=== PATIENT | female | born 1930 | race Caucasian/White ===

== ENCOUNTER 2018-01-27 20:08 | Inpatient (IN) ==
[2018-01-27] MEDS ORDERED: Naloxone 0.4 MG/ML INJ IVP PRN (22:40)
--- NOTE | 2018-01-27 23:41 | Internal Med History&Physical ---
Date of Encounter: 01/28/18 Time of Encounter: 23:35 Internal Medicine - H&P: HPI Chief complaint: Decreased responsiveness Admitted From: Emergency Dept Plans for Post Hospital Care: Transfer [facility] History of present illness: Ms. Hua is a 87 year old female with history of severe dementia, polycythemia vera was sent to the emergency department from the correction due to abnormal labs and decreased responsiveness. Patient is altered at this time and history is obtained from the niece, Faviola, at bedside who is also the healthcare power of insurance attorney. Niece states that the patient seems less responsive and active than normal. Niece states that her mental status normally waxes and wanes and at times she will be somewhat interactive but is normally always confused. She reports her right eyelid and face has mild drooping at all times. The only new changes that that the niece notes is decreased responsiveness. Past Med Surg Social Fam HX - Past Medical History Medical history: arthritis, cancer, dementia, glaucoma Additional medical history: breast CA (R mastectomy) Psychiatric history: anxiety, depression - Past Surgical History Surgical History: no surgical history Additional surgical history: Unknown - Social History Smoking Status: Former smoker Smokeless Tobacco Status: No Alcohol use: none Drug use: none Internal Medicine - H&P: Meds Acidophilus 175 mg Capsule 1 cap PO BID 01/10/15 [History] Ambien 1 tab PO DAILY PRN 01/10/15 [History] Aricept 1 tab PO DAILY 01/10/15 [History] Baclofen 1 tab PO BID PRN 01/10/15 [History] Hydroxyurea [Hydrea] 1 cap PO DAILY #30 capsule 01/10/15 [Rx] Loratadine 1 tab PO DAILY 01/10/15 [History] Multivitamin 1 tab PO DAILY 01/10/15 [History] Zoloft 1 tab PO DAILY 01/10/15 [History] Acetaminophen [Tylenol] 1,000 mg PO Q8HR PRN 04/07/15 [History] Ascorbic Acid [Vitamin C] 500 mg PO DAILY 04/07/15 [History] Baclofen [Lioresal Intrathecal] 2,000 mcg TP BID 04/07/15 [History] Dorzolamide/Timolol [Cosopt] 1 drop LEFT EYE BID 04/07/15 [History] Pilocarpine 2% OPTH [Isopto Carpine] 2 drop LEFT EYE HS 04/07/15 [History] Travoprost [Travatan Z] 5 ml OP HS 04/07/15 [History] Vitamin B Complex/Folic Acid [Super B Maxi Complex Caplet] 0.4 mg PO QAM [History] Aspirin [Adult Low Dose Aspirin EC] 162 mg PO DAILY 365 Days tablet. [Rx] Hydroxyurea [Hydrea] 500 mg PO DAILY #30 capsule 07/16/16 [Rx] 3 Allergy/AdvReac Type Severity Reaction Status Date / Time No Known Allergies Allergy Verified 01/10/15 14:32 ROS unobtainable: due to mental status All Systems PM: A 10-system review of systems was performed and is negative for pertinent findings except as documented above in the HPI. - Constitutional Vitals: Temp Pulse Resp BP Pulse Ox 98.5 F 82 19 134/82 96 01/27/18 22:25 01/27/18 22:25 01/27/18 22:25 01/27/18 22:25 01/27/18 22:25 General appearance: Present: A&O X 0, no acute distress. Absent: answers questions appropriately Exam: . - Eye Eye exam: Present: PERRL (pupils reactive but sluggish). Absent: periorbital swelling Additional comments: Right ptosis - ENT ENT exam: Present: mucous membranes dry, normal oropharynx - Neck Neck exam general surgery: Present: full ROM. Absent: tenderness - Respiratory Respiratory exam: Present: CTAB. Absent: rales, rhonchi, wheezes - Cardiovascular Cardiovascular exam: Present: RRR. Absent: gallop, rubs, systolic murmur - GI/Abdominal GI/Abdominal exam: Present: diminished bowel sounds, soft. Absent: distended, tenderness - Extremities Exam Extremities exam: Present: warm. Absent: pedal edema, tenderness - Neurological Exam Neurological exam: Present: alert, altered, no focal deficits, facial droop ( mild right sided, chronic per niece). Absent: oriented X3 Additional comments: Patient has severe underlying dementia, will make verbal noises but does not answer questions appropriately. He states that the patient seems somewhat more lethargic but otherwise is at baseline mental status with no new neurologic findings. - Skin Skin exam: Present: dry, intact, warm Internal Med - H&P Results - Labs CBC & Chem 7: 01/27/18 23:05 01/27/18 23:05 - Assessment and plan (1) Hypernatremia Current Visit: Yes Status: Acute Assessment and plan: Sodium 168 on presentation, corrected for glucose is 179. Appears to be chronic (>48h) as patient had an elevated sodium of 157 (161 corrected) on January 23. Patient had a normal sodium of 143 (with normal glucose) on January 09. Likely due to decreased oral intake and lack of free water intake, likely impaired thirst reflex in the setting of severe dementia. Patient appears dehydrated on exam. Urine osmolality is 783 and urine sodium was 24.5. Patient received 1 L of fluids in the emergency department, free water deficit calculated to be 5.2L. patient is acutely hypovolemic so we will replenish with 2 L normal saline then likely correct with half-normal saline. Goal correction is 10 mEq every 24 hours. Monitor glucose and sodium every 2 hours. Given patient's altered mental status and high concern for aspiration we will keep patient nothing by mouth at this time. Of note discussed with the niece Micki who is the healthcare power of insurance attorney regarding CODE STATUS. She feels like DNR CCA would likely be appropriate but she would like to discuss with her siblings before making this official. Patient will remain full code at this time (2) Hyperglycemia Current Visit: No Status: Inactive Assessment and plan: Possibly due to severe dehydration as discussed above as well as stress response in the setting of dehydration. No history of diabetes. We will check hemoglobin A1c in the morning. We will aggressively fluid hydrate as discussed above and hold off on any insulin at this time as it is likely that correcting the patient's dehydration we will correct her sugars. (3) Acute kidney injury Current Visit: Yes Status: Acute Assessment and plan: Likely due to prerenal azotemia in the setting of severe dehydration. Will fluid hydrate as discussed above, continue monitor renal function. Patient has good urine output. (4) Dementia Current Visit: No Status: Chronic Assessment and plan: History of. Patient appears less alert but otherwise is at her baseline per her niece Qualifiers: Dementia type: unspecified type Dementia behavioral disturbance: without behavioral disturbance Qualified Code(s): F03.90 - Unspecified dementia without behavioral disturbance (5) Polycythemia Current Visit: No Status: Acute Assessment and plan: History of polycythemia vera. He will been stable this time. We will trend. Nothing by mouth at this time, once patient is able to take by mouth meds will restart hydroxyurea. (6) DVT prophylaxis Current Visit: Yes Status: Acute Assessment and plan: Heparin 5000 units subcutaneous twice a day - Time Spent With Patient Total time spent is greater than 50% in coordination of care (as documented) at patient's floor/unit and/or counseling patient:
[2018-01-28 00:06] LABS: Calcium 8.8 mg/dL (8.6-10.3); Potassium 3.9 mEq/L (3.5-5.1)
[2018-01-28 00:09] LABS: Basophils % 0.2 %; Eosinophils % 0.2 %; Hematocrit 42.6 % (35.3-44.9); Immature Granulocytes % 0.5 % (0-4); Lymphocytes % 8.9 %; Mean Corpuscular HGB Conc 30.5 g/dL (31.6-35.5); Mean Corpuscular Hemoglobin 34.7 pg (28.0-33.3); Mean Corpuscular Volume 113.6 fL (83.0-100.0); Mean Platelet Volume 11.9 fL (9.4-12.4); Monocytes # 0.5 K/mcL (0.0-1.3); Monocytes % 4.7 %; Neutrophils # 9.2 K/mcL (1.6-8.9); Platelet Count 257 K/mcL (140-400); Red Blood Count 3.75 M/mcL (3.82-4.97); Red Cell Distribution Width 14.8 % (11.5-14.5); Segmented Neutrophils % 85.5 %
[2018-01-28] MEDS: 0.9 % Sodium Chloride 1,000 ML IVC SCH ×2 (00:34→01:39)
[2018-01-28 00:35] LABS: Macrocytosis Present (Not Present); Platelet Estimate Normal (Normal)
[2018-01-28 03:41] LABS: Basophils % 0.2 %; Eosinophils % 0.1 %; Hematocrit 39.5 % (35.3-44.9); Immature Granulocytes % 0.6 % (0-4); Lymphocytes # 1.1 K/mcL (0.6-4.6); Lymphocytes % 10.8 %; Mean Corpuscular HGB Conc 30.4 g/dL (31.6-35.5); Mean Corpuscular Hemoglobin 35.1 pg (28.0-33.3); Mean Corpuscular Volume 115.5 fL (83.0-100.0); Mean Platelet Volume 11.7 fL (9.4-12.4); Monocytes # 0.4 K/mcL (0.0-1.3); Monocytes % 4.4 %; Neutrophils # 8.4 K/mcL (1.6-8.9); Platelet Count 228 K/mcL (140-400); Red Blood Count 3.42 M/mcL (3.82-4.97); Red Cell Distribution Width 14.8 % (11.5-14.5); Segmented Neutrophils % 83.9 %
[2018-01-28 04:06] LABS: Macrocytosis Present (Not Present); Platelet Estimate Normal (Normal)
[2018-01-28] MEDS: *HR* Heparin 5,000 UNIT/ML VIAL SQ SCH ×2 (05:41→18:06)
[2018-01-28 06:27] LABS: Calcium 8.2 mg/dL (8.6-10.3); Magnesium 2.5 mg/dL (1.6-2.6); Potassium 3.9 mEq/L (3.5-5.1)
[2018-01-28 08:15] LABS: Glucose 490 mg/dL (70-105); Sodium 173 mEq/L (136-145)
[2018-01-28] MEDS ORDERED: Dextrose Gel 15 GM/37.5 ML TUBE PO PRN ×2 (08:39)
[2018-01-28] MEDS ORDERED: *HR* Dextrose 50 % in Water (Syg) 50 ML SYRINGE IVP PRN (08:39)
[2018-01-28] MEDS ORDERED: D5% in Water 1,000 ML IVC PRN (08:39)
[2018-01-28] MEDS ORDERED: Insulin LISPRO 300 UNITS/3 ML VIAL SQ SCH (08:40)
[2018-01-28] MEDS ORDERED: D5% in 0.9% NACL 1,000 ML IVC SCH (08:45)
[2018-01-28 08:54] LABS: Estimated Average Glucose 223 mg/dl; Hemoglobin A1C 9.4 %
[2018-01-28] MEDS ORDERED: Insulin Human Regular 100 UNIT in 0.9 % Sodium Chloride 100 ML IVC SCH (09:00)
--- NOTE | 2018-01-28 09:09 | Internal Med Progress Note ---
Hospitalist Progress Note - Encounter Date of Encounter: 01/28/18 Time of Encounter: 09:01 - Subjective Interval History: Ms. Hua is a 87 year old female with history of severe dementia, polycythemia vera and dementia who is chronic long-term resident at a [facility] was brought into the ER complaining patient has been having decreased responsiveness , lethargic and abnormal labs with severely elevated sodium. Patient had her sodium checked on came back 158 and y/d it was 168. Pt was admitted into the step down unit and started her on aggressive IV hydration with 1/2NS. Her Na still trending high at 173 this morning. Pt is little more alert, awake and responding to verbal stimuli. She also happened to have severe hyperglycemia. - Exam Vitals: Temp Pulse Resp BP Pulse Ox 99.4 F 86 16 159/82 93 01/28/18 07:59 01/28/18 07:59 01/28/18 07:59 01/28/18 07:59 01/28/18 07:59 Exam: Gen: sleepy, sedative, confused Chest: Diminished breath sounds B/L, No wheezing, No crackles, No rales Heart: S1S2+ RRR No murmurs Abd: Soft, NT, BS +, No organomegaly Ext: No edema, pulses are palpable, No calf tenderness Neuro : confused Skin: No rash. - Assessment and Plan (1) Hypernatremia Current Visit: Yes Status: Acute Assessment and Plan: Severe hypernatremia due to dehydration / hypovolemic changed IVF to D5 Water @ 150 cc/hr Morrison +, Strict I & O Q4hr Na Q8hr K+ and Mg cont close monitoring Talked to pt's niece at bed side who is POA for the pt.. Explained to her about current care. She would like to continue current care for next 1-2 days, if no improvement she would consider complete hospice care. Mean while changed code status to DNR/ Comfort care. She does not want to proceed with any other aggressive measures Palliative care consulted Spent 45 minutes on this pt's critical care time. (2) Acute kidney injury Current Visit: Yes Status: Acute Assessment and Plan: Due to dehydration Non oliguric improving slowly (3) Hyperglycemia Current Visit: No Status: Acute Assessment and Plan: Severe hyperglycemia will f/u on HbA1C started her in Insulin gtt, since pt was placed on D5 Water too (4) Dementia Current Visit: No Status: Chronic Assessment and Plan: worsening dementia poor PO intake at ECF Family would like to consider comfort care Palliative care consulted (5) Polycythemia Current Visit: No Status: Acute Assessment and Plan: stable once patient is able to take by mouth meds will restart hydroxyurea. (6) DVT prophylaxis Current Visit: Yes Status: Acute Assessment and Plan: Heparin 5000 units subcutaneous twice a day - Time Spent with Patient Total time spent is greater than 50% in coordination of care (as documented) at patient's floor/unit and/or counseling patient: Internal Medicine: Result - Labs CBC & Chem 7: 01/28/18 02:58 01/28/18 07:14 Labs: Short CBC 01/27/18 01/28/18 Range/Units 23:05 02:58 WBC 10.7 10.0 (4.3-11.1) K/mcL Hgb 13.0 12.0 (11.5-15.4) g/dL Hct 42.6 39.5 (35.3-44.9) % Plt Count 257 228 (140-400) K/mcL Neutrophils # 9.2 H 8.4 (1.6-8.9) K/mcL BMP 01/27/18 01/28/18 01/28/18 23:05 02:58 02:58 Sodium 172 H* 172 H* Potassium 3.9 Chloride 129 H Carbon Dioxide 33 H BUN 61 H Creatinine 1.44 H Glucose 597 H* 493 H Calcium 8.8 01/28/18 01/28/18 05:07 07:14 Sodium 170 H* 173 H* Potassium 3.9 Chloride 137 H Carbon Dioxide 30 H BUN 54 H Creatinine 1.22 H Glucose 495 H 490 H Calcium 8.2 L Consult Discharge Plan - Plan Referrals: Burt Bolanos MD [Primary Care Provider] - (4) Dementia Qualifiers: Dementia type: unspecified type Dementia behavioral disturbance: without behavioral disturbance Qualified Code(s): F03.90 - Unspecified dementia without behavioral disturbance
[2018-01-28] MEDS ORDERED: D5% in Water 1,000 ML IVC SCH ×3 (09:15→20:31)
--- NOTE | 2018-01-28 10:30 | Palliative - Consult Note ---
Date of Encounter: 01/28/18 Time of Encounter: 10:25 - Assessment and Plan (1) Goals of care, counseling/discussion Current Visit: Yes Status: Acute Assessment and plan: Met with Pt's nieces Maria Fernanda Salmeron at the bedside. Patient never had children, but she has 5 nieces. Maria Fernanda and Faviola are both POA, and will provide documentation. Discussed pt's current medical condition, trajectory of illness, treatment options and prognosis. Faviola and Maria Fernanda have a good understanding of hospice care as their mother recently on hospice. As per the nieces, patient up to a week ago was walking and eating well. The current condition is an acute change from her baseline, and they would like to attempt to find and treat the acute causes. Patient to be re-evaluated once her electrolytes are stable. Discussed code status, the nieces would like patient to be DNRCCA and DNI, but they would like to discuss with their siblings before final documentation is drafted. At this point GOC are for acute treatment, with the hope for pt to return to her previous baseline. Further evaluation as clinically warranted. Palliative care will follow. (2) Hyperglycemia Current Visit: No Status: Acute Assessment and plan: Patient has no history of DM as per family, pt was recently given a course of steroids for a R knee infusion. Agree with insulin drip, given pt on D5W close monitoring. (3) Metabolic encephalopathy Current Visit: Yes Status: Acute Assessment and plan: Patient on admission had a severely elevated Na and Cl, as well as severe hyperglycemia Recommend UA to r/o UTI as a contributing factor continue hydration ad electrolytes repletion Agree with insulin drip (4) Dementia Current Visit: No Status: Chronic Assessment and plan: Patient at her baseline is ambulatory, limited speech, good PO intake. FAST score 6E. Continue Donepezil Qualifiers: Dementia type: Alzheimer's disease Alzheimer's disease onset: unspecified onset Dementia behavioral disturbance: without behavioral disturbance Qualified Code(s): G30.9 - Alzheimer's disease, unspecified; F02.80 - Dementia in other diseases classified elsewhere without behavioral disturbance (5) Hypernatremia Current Visit: Yes Status: Acute Assessment and plan: Labs show hypernatremia and hyperchloremia, and GINO with BUN/Cr > 20, compatible with dehydration Patient on IV hydration with D5 water 150cc/hr monitoring Na and K. If no improvement may consider enteral hydration with NGT (6) Acute kidney injury Current Visit: Yes Status: Acute Assessment and plan: Prerenal, likely due to dehydration management per primary team Palliative-CN HPI - Data of Consult Consult date: 01/28/18 Requesting Physician: Christian Gutierrez MD Primary Care Provider: Burt Bolanos MD - Consult Narrative Palliative Care/Comfort Measures: Palliative care Reason for consult: Hospice evaluation History of present illness: Ms. Hua is a 87 year old female with history of severe dementia, polycythemia vera who is chronic long-term resident at a local [facility] was brought into the ER complaining patient has been having decreased responsiveness, lethargic and abnormal labs with severely elevated sodium and glucose. As per patient's nieces Maria Fernanda and Faviola present at the bedside, patient at her baseline is alert, she walks and participates in [facility] activities, she speaks few words. She had an acute decline last Friday due to respiratory virus as per [facility] staff, and has been worsening since then. At the time of exam, patient is alert, non verbal, not following commands. In no acute distress, does not seem in pain or discomfort. CC: Christian Gutierrez MD - Time Spent with Patient Time: Total time spent is greater than 50% face to face with patient and family, in coordination of care (as documented) at patient's floor/unit and/or counseling patient: Greater than 70 minutes Past Med Surg Social Fam HX - Past Medical History Medical history: arthritis, cancer, dementia, glaucoma Additional medical history: breast CA (R mastectomy) Psychiatric history: anxiety, depression - Past Surgical History Surgical History: no surgical history Additional surgical history: Unknown - Social History Smoking Status: Former smoker Smokeless Tobacco Status: No Alcohol use: none Drug use: none Medications and Allergies ALPRAZolam [Xanax 0.5 MG Tablet] 0.5 mg PO BID 01/28/18 [History] Aspirin [Lo-Dose Aspirin EC] 81 mg PO DAILY 01/28/18 [History] Azithromycin [Azithromycin 6-Tab Pack] 250 mg PO PER PKG DI 01/28/18 [History] Cyanocobalamin (Vitamin B-12) [Vitamin B-12] 1,000 mcg PO DAILY 01/28/18 [ History] Donepezil HCl [Aricept] 10 mg PO HS 01/28/18 [History] Dorzolamide/Timolol/Pf [Timolol 0.5%-Dorzolamide 2%] 10 ml LEFT EYE TID [History] GuaiFENesin Liq [Robitussin Liq] 200 mg PO Q4H PRN 01/28/18 [History] Guaifenesin [Mucinex] 600 mg PO Q12H 01/28/18 [History] Hydroxyurea [Hydrea] 500 mg PO DAILY 01/28/18 [History] Ibuprofen [Ibu] 600 mg PO Q6H PRN 01/28/18 [History] Lactobacillus Acidophilus [Acidophilus] 1 tab PO BID 01/28/18 [History] Loperamide HCl [Imodium A-D] 2 mg PO Q4H PRN 01/28/18 [History] Loratadine [Allergy Relief] 10 mg PO DAILY 01/28/18 [History] Mag Hydrox/Aluminum Hyd/Simeth [Cvs Antacid Plus Anti-Gas Liq] 15 ml PO Q6H PRN 01/28/18 [History] Ondansetron HCl [Zofran] 4 mg PO Q6H PRN 01/28/18 [History] Pilocarpine HCl [Salagen] 5 mg PO BID 01/28/18 [History] Sertraline [Zoloft] 50 mg PO DAILY 01/28/18 [History] Travoprost [Travatan Z] 1 drop LEFT EYE 1700 01/28/18 [History] 3 Allergy/AdvReac Type Severity Reaction Status Date / Time No Known Allergies Allergy Verified 01/10/15 14:32 ROS unobtainable: due to mental status Palliative Care-Exam - Constitutional Vitals: Temp Pulse Resp BP Pulse Ox 99.4 F 82 16 159/82 93 01/28/18 07:59 01/28/18 09:10 01/28/18 07:59 01/28/18 07:59 01/28/18 07:59 General appearance: Present: no acute distress - Head Head Exam: Present: atraumatic - Eye Eye exam: Present: normal appearance - Expanded ENT Exam Mouth Exam: Present: dry mucosa - Neck Neck exam: Present: full ROM - Respiratory Respiratory exam: Present: CTAB. Absent: rales, rhonchi, wheezes - Cardiovascular Cardiovascular exam: Present: RRR - GI/Abdominal Exam GI/Abdominal exam: Present: normal bowel sounds, soft. Absent: tenderness - Extremities Exam Extremities exam: Present: full ROM. Absent: pedal edema, tenderness - Neurological Exam Neurological exam: Present: alert, altered Additional comments: non verbal, no focal deficits - Skin Skin exam: Present: dry Internal Medicine - CN: Reslt - Labs CBC & Chem 7: 01/28/18 02:58 01/28/18 07:14 Labs: Short CBC 01/27/18 01/28/18 Range/Units 23:05 02:58 WBC 10.7 10.0 (4.3-11.1) K/mcL Hgb 13.0 12.0 (11.5-15.4) g/dL Hct 42.6 39.5 (35.3-44.9) % Plt Count 257 228 (140-400) K/mcL Neutrophils # 9.2 H 8.4 (1.6-8.9) K/mcL BMP 01/27/18 01/28/18 01/28/18 23:05 02:58 02:58 Sodium 172 H* 172 H* Potassium 3.9 Chloride 129 H Carbon Dioxide 33 H BUN 61 H Creatinine 1.44 H Glucose 597 H* 493 H Calcium 8.8 01/28/18 01/28/18 05:07 07:14 Sodium 170 H* 173 H* Potassium 3.9 Chloride 137 H Carbon Dioxide 30 H BUN 54 H Creatinine 1.22 H Glucose 495 H 490 H Calcium 8.2 L Consult Discharge Plan - Plan Referrals: Burt Bolanos MD [Primary Care Provider] - Palliative Quality Palliative Quality: Screen for Code Status: Yes, Screen for Goals of Care: Yes, Screen for Pain: Yes, If Pain Regimen Started, Initiate Bowel Regimen: NA, Screen for Nausea/Vomitting: NA Code Status: 01/27/18 23:06 CODE [Resuscitation Status: Active] [RES] Routine Comment: Resuscitation Status: Full Code 01/28/18 09:00 CODE [Resuscitation Status: Active] [RES] Routine Comment: Resuscitation Status: DNR-Comfort Care
[2018-01-28 13:45] LABS: Magnesium 2.2 mg/dL (1.6-2.6)
[2018-01-28 16:48] LABS: Bilirubin,Urine Negative (Negative); Blood,Urine Moderate (Negative); Clarity,Urine Cloudy (Clear); Color,Urine Yellow (Yellow); Glucose,Urine (UA) Normal (Normal); Ketones,Urine Negative (Negative); Leukocyte Esterase,Urine Small (Negative); Nitrite,Urine Negative (Negative); PH,Urine 5.5 pH Units (5.0-8.0); Protein,Urine 30 mg/dL (Neg-Trace); Urobilinogen,Urine Normal (Normal)
[2018-01-28 16:51] LABS: Bacteria,Urine None Seen per hpf (None-Few); Hyaline Casts,Urine Few per lpf (None-Few); Squamous Epithelial Cell,Urine Few per lpf (None-Few); WBC,Urine 15-30 per hpf (0-3)
[2018-01-28] MEDS: Insulin LISPRO 300 UNITS/3 ML VIAL SQ SCH ×2 (18:06→23:54)
[2018-01-28] MEDS: Haloperidol Lactate 5 MG/ML VIAL IVP PRN (22:00)
[2018-01-28 23:26] LABS: Calcium 8.3 mg/dL (8.6-10.3); Magnesium 2.2 mg/dL (1.6-2.6); Potassium 3.4 mEq/L (3.5-5.1)
[2018-01-29 03:29] LABS: Basophils % 0.1 %; Eosinophils # 0.1 K/mcL (0.0-0.6); Eosinophils % 0.9 %; Hematocrit 37.8 % (35.3-44.9); Hemoglobin 11.5 g/dL (11.5-15.4); Immature Granulocytes % 0.4 % (0-4); Lymphocytes # 1.3 K/mcL (0.6-4.6); Lymphocytes % 13.9 %; Mean Corpuscular HGB Conc 30.4 g/dL (31.6-35.5); Mean Corpuscular Hemoglobin 34.7 pg (28.0-33.3); Mean Corpuscular Volume 114.2 fL (83.0-100.0); Mean Platelet Volume 11.4 fL (9.4-12.4); Monocytes # 0.4 K/mcL (0.0-1.3); Monocytes % 4.3 %; Platelet Count 191 K/mcL (140-400); Red Blood Count 3.31 M/mcL (3.82-4.97); Red Cell Distribution Width 14.8 % (11.5-14.5); Segmented Neutrophils % 80.4 %
[2018-01-29 03:32] LABS: Neutrophils # 7.6 K/mcL (1.6-8.9)
[2018-01-29 04:04] LABS: Calcium 8.3 mg/dL (8.6-10.3); Magnesium 2.2 mg/dL (1.6-2.6); Potassium 3.8 mEq/L (3.5-5.1)
[2018-01-29] MEDS: *HR* Heparin 5,000 UNIT/ML VIAL SQ SCH ×2 (04:56→16:07)
[2018-01-29] MEDS: D5% in Water 1,000 ML IVC SCH ×2 (04:56→10:40)
[2018-01-29] MEDS: Insulin LISPRO 300 UNITS/3 ML VIAL SQ SCH ×3 (04:57→16:07)
[2018-01-29 06:53] LABS: Macrocytosis Present (Not Present); Platelet Estimate Normal (Normal)
[2018-01-29] MEDS: Haloperidol Lactate 5 MG/ML VIAL IVP PRN ×2 (12:38→21:02)
--- NOTE | 2018-01-29 13:08 | Palliative Progress Note ---
Date of Encounter: 01/29/18 Time of Encounter: 12:45 - Assessment and plan (1) Goals of care, counseling/discussion Current Visit: Yes Status: Acute Assessment and plan: Patient has shown improvement. As per conversation with nifinn yesterday, the goal at this time is for pt to return to [place] on previous level of care. Patient has a diagnosis of dementia, but if she returns to her baseline, her FAST scare is 6E, and she will not qualify for hospice admission. (2) Hyperglycemia Current Visit: No Status: Acute Assessment and plan: Pt is on insulin drip, glucose remains around 150mg (3) Metabolic encephalopathy Current Visit: Yes Status: Acute Assessment and plan: Patient improving with electrolytes control, now closer to her baseline. (4) Dementia Current Visit: No Status: Chronic Assessment and plan: Patient at her baseline is ambulatory, limited speech, good PO intake. FAST score 6E. Continue Donepezil Qualifiers: Dementia type: Alzheimer's disease Alzheimer's disease onset: unspecified onset Dementia behavioral disturbance: without behavioral disturbance Qualified Code(s): G30.9 - Alzheimer's disease, unspecified; F02.80 - Dementia in other diseases classified elsewhere without behavioral disturbance (5) Hypernatremia Current Visit: Yes Status: Acute Assessment and plan: improving, continue hydration. encourage enteral hydration (6) Acute kidney injury Current Visit: Yes Status: Acute Assessment and plan: improving with hydration - Time Spent With Patient Total time spent is greater than 50% in coordination of care (as documented) at patient's floor/unit and/or counseling patient: - Subjective Interval history: Patient was alert, in no acute distress. She answered to her name, and stated she was sleepy. At the time of exam, pt just given a dose of Haldol for agitation. - Constitutional Vitals: Abnormal lab results RBC 3.31 M/mcL (3.82-4.97) L 01/29/18 03:19 MCV 114.2 fL (83.0-100.0) H 01/29/18 03:19 MCH 34.7 pg (28.0-33.3) H 01/29/18 03:19 MCHC 30.4 g/dL (31.6-35.5) L 01/29/18 03:19 RDW 14.8 % (11.5-14.5) H 01/29/18 03:19 Macrocytosis Present (Not Present) A 01/29/18 03:19 Sodium 134 mEq/L (136-145) L D 01/29/18 11:26 Chloride 129 mEq/L (98-107) H 01/29/18 03:19 Carbon Dioxide 30 mEq/L (23-29) H 01/29/18 03:19 BUN 35 mg/dL (8-23) H 01/29/18 03:19 Est GFR ( Amer) 59 (> 60) L 01/29/18 03:19 Est GFR (Non-Af Amer) 48 (> 60) L 01/29/18 03:19 BUN/Creatinine Ratio 33 (6-26) H 01/29/18 03:19 Glucose 274 mg/dL (70-105) H 01/29/18 03:19 POC Glucose 282 mg/dL (70-99) H 01/29/18 08:05 Hemoglobin A1c 9.4 % (-5.6) H 01/28/18 02:58 Calculated Osmolality 362 (280-300) H 01/29/18 03:19 Calcium 8.3 mg/dL (8.6-10.3) L 01/29/18 03:19 Urine Clarity Cloudy (Clear) A 01/28/18 16:00 Urine Protein 30 mg/dL (Neg-Trace) H 01/28/18 16:00 Urine Blood Moderate (Negative) H 01/28/18 16:00 Ur Leukocyte Esterase Small (Negative) H 01/28/18 16:00 Urine Microscopic RBC 3-5 per hpf (0-3) H 01/28/18 16:00 Urine Microscopic WBC 15-30 per hpf (0-3) H 01/28/18 16:00 Ur Culture Indicated? YES (NO) A 01/28/18 16:00 Exam: General appearance: Present: no acute distress - Head Head Exam: Present: atraumatic - Eye Eye exam: Present: normal appearance - Expanded ENT Exam Mouth Exam: Present: moist mucosa - Neck Neck exam: Present: full ROM - Respiratory Respiratory exam: Present: CTAB. Absent: rales, rhonchi, wheezes - Cardiovascular Cardiovascular exam: Present: RRR - GI/Abdominal Exam GI/Abdominal exam: Present: normal bowel sounds, soft. Absent: tenderness - Extremities Exam Extremities exam: Present: full ROM. Absent: pedal edema, tenderness - Neurological Exam Neurological exam: alert, confused but verbal. No focal neurologic deficits. - Skin Skin exam: Present: dry Palliative Quality Palliative Quality: Screen for Code Status: Yes, Screen for Goals of Care: Yes, Screen for Pain: Yes, If Pain Regimen Started, Initiate Bowel Regimen: NA, Screen for Nausea/Vomitting: NA Code Status: 01/27/18 23:06 CODE [Resuscitation Status: Active] [RES] Routine Comment: Resuscitation Status: Full Code 01/28/18 09:00 CODE [Resuscitation Status: Active] [RES] Routine Comment: Resuscitation Status: DNR-Comfort Care - Labs CBC & Chem 7: 01/29/18 03:19 01/29/18 11:26 Labs: Laboratory Results - last 24 hr 01/28/18 01/28/18 01/28/18 12:40 13:05 14:02 WBC RBC Hgb Hct MCV MCH MCHC RDW Plt Count MPV Immature Gran % Seg Neutrophils % Lymphocytes % Monocytes % Eosinophils % Basophils % Neutrophils # Lymphocytes # Monocytes # Eosinophils # Basophils # Platelet Estimate Macrocytosis Sodium 158 H D Potassium Chloride Carbon Dioxide BUN Creatinine Est GFR ( Amer) Est GFR (Non-Af Amer) BUN/Creatinine Ratio Glucose POC Glucose 288 H 199 H Calculated Osmolality Calcium Magnesium 2.2 Urine Color Urine Clarity Urine pH Ur Specific [place] Urine Protein Urine Glucose (UA) Urine Ketones Urine Blood Urine Nitrite Urine Bilirubin Urine Urobilinogen Ur Leukocyte Esterase Urine Microscopic RBC Urine Microscopic WBC Ur Squamous Epith Cells Urine Bacteria Hyaline Casts Ur Culture Indicated? Specimen Rejected 01/28/18 01/28/18 01/28/18 14:59 16:00 16:01 WBC RBC Hgb Hct MCV MCH MCHC RDW Plt Count MPV Immature Gran % Seg Neutrophils % Lymphocytes % Monocytes % Eosinophils % Basophils % Neutrophils # Lymphocytes # Monocytes # Eosinophils # Basophils # Platelet Estimate Macrocytosis Sodium Potassium Chloride Carbon Dioxide BUN Creatinine Est GFR ( Amer) Est GFR (Non-Af Amer) BUN/Creatinine Ratio Glucose POC Glucose 135 H 133 H Calculated Osmolality Calcium Magnesium Urine Color Yellow Urine Clarity Cloudy A Urine pH 5.5 Ur Specific [place] 1.010 Urine Protein 30 H Urine Glucose (UA) Normal Urine Ketones Negative Urine Blood Moderate H Urine Nitrite Negative Urine Bilirubin Negative Urine Urobilinogen Normal Ur Leukocyte Esterase Small H Urine Microscopic RBC 3-5 H Urine Microscopic WBC 15-30 H Ur Squamous Epith Cells Few Urine Bacteria None Seen Hyaline Casts Few Ur Culture Indicated? YES A Specimen Rejected 01/28/18 01/28/18 01/28/18 16:27 17:46 21:01 WBC RBC Hgb Hct MCV MCH MCHC RDW Plt Count MPV Immature Gran % Seg Neutrophils % Lymphocytes % Monocytes % Eosinophils % Basophils % Neutrophils # Lymphocytes # Monocytes # Eosinophils # Basophils # Platelet Estimate Macrocytosis Sodium 162 H* Potassium Chloride Carbon Dioxide BUN Creatinine Est GFR ( Amer) Est GFR (Non-Af Amer) BUN/Creatinine Ratio Glucose POC Glucose 161 H Calculated Osmolality Calcium Magnesium Urine Color Urine Clarity Urine pH Ur Specific [place] Urine Protein Urine Glucose (UA) Urine Ketones Urine Blood Urine Nitrite Urine Bilirubin Urine Urobilinogen Ur Leukocyte Esterase Urine Microscopic RBC Urine Microscopic WBC Ur Squamous Epith Cells Urine Bacteria Hyaline Casts Ur Culture Indicated? Specimen Rejected Contaminated 01/28/18 01/28/18 01/29/18 21:59 22:38 03:19 WBC 9.5 RBC 3.31 L Hgb 11.5 Hct 37.8 MCV 114.2 H MCH 34.7 H MCHC 30.4 L RDW 14.8 H Plt Count 191 MPV 11.4 Immature Gran % 0.4 Seg Neutrophils % 80.4 Lymphocytes % 13.9 Monocytes % 4.3 Eosinophils % 0.9 Basophils % 0.1 Neutrophils # 7.6 Lymphocytes # 1.3 Monocytes # 0.4 Eosinophils # 0.1 Basophils # 0.0 Platelet Estimate Normal Macrocytosis Present A Sodium 169 H* Potassium 3.4 L Chloride 131 H Carbon Dioxide 31 H BUN 37 H Creatinine 1.11 Est GFR ( Amer) 56 L Est GFR (Non-Af Amer) 46 L BUN/Creatinine Ratio 33 H Glucose 182 H POC Glucose 157 H Calculated Osmolality 361 H Calcium 8.3 L Magnesium 2.2 Urine Color Urine Clarity Urine pH Ur Specific [place] Urine Protein Urine Glucose (UA) Urine Ketones Urine Blood Urine Nitrite Urine Bilirubin Urine Urobilinogen Ur Leukocyte Esterase Urine Microscopic RBC Urine Microscopic WBC Ur Squamous Epith Cells Urine Bacteria Hyaline Casts Ur Culture Indicated? Specimen Rejected 01/29/18 01/29/18 01/29/18 03:19 07:40 08:05 WBC RBC Hgb Hct MCV MCH MCHC RDW Plt Count MPV Immature Gran % Seg Neutrophils % Lymphocytes % Monocytes % Eosinophils % Basophils % Neutrophils # Lymphocytes # Monocytes # Eosinophils # Basophils # Platelet Estimate Macrocytosis Sodium 167 H* 155 H D Potassium 3.8 Chloride 129 H Carbon Dioxide 30 H BUN 35 H Creatinine 1.07 Est GFR ( Amer) 59 L Est GFR (Non-Af Amer) 48 L BUN/Creatinine Ratio 33 H Glucose 274 H POC Glucose 282 H Calculated Osmolality 362 H Calcium 8.3 L Magnesium 2.2 Urine Color Urine Clarity Urine pH Ur Specific [place] Urine Protein Urine Glucose (UA) Urine Ketones Urine Blood Urine Nitrite Urine Bilirubin Urine Urobilinogen Ur Leukocyte Esterase Urine Microscopic RBC Urine Microscopic WBC Ur Squamous Epith Cells Urine Bacteria Hyaline Casts Ur Culture Indicated? Specimen Rejected 01/29/18 11:26 WBC RBC Hgb Hct MCV MCH MCHC RDW Plt Count MPV Immature Gran % Seg Neutrophils % Lymphocytes % Monocytes % Eosinophils % Basophils % Neutrophils # Lymphocytes # Monocytes # Eosinophils # Basophils # Platelet Estimate Macrocytosis Sodium 134 L D Potassium Chloride Carbon Dioxide BUN Creatinine Est GFR ( Amer) Est GFR (Non-Af Amer) BUN/Creatinine Ratio Glucose POC Glucose Calculated Osmolality Calcium Magnesium Urine Color Urine Clarity Urine pH Ur Specific [place] Urine Protein Urine Glucose (UA) Urine Ketones Urine Blood Urine Nitrite Urine Bilirubin Urine Urobilinogen Ur Leukocyte Esterase Urine Microscopic RBC Urine Microscopic WBC Ur Squamous Epith Cells Urine Bacteria Hyaline Casts Ur Culture Indicated? Specimen Rejected Consult Discharge Plan - Plan Referrals: Burt Bolanos MD [Primary Care Provider] -
--- NOTE | 2018-01-29 13:27 | Internal Med Progress Note ---
Hospitalist Progress Note - Encounter Date of Encounter: 01/29/18 Time of Encounter: 09:00 - Subjective Interval History: Ms. Hua is a 87 year old female with history of severe dementia, polycythemia vera and dementia who is chronic long-term resident at a local snf was brought into the ER complaining patient has been having decreased responsiveness , lethargic and abnormal labs with severely elevated sodium. Patient had her sodium checked on came back 158 and y/d it was 168. Pt was admitted into the step down unit and started her on aggressive IV hydration with 1/2NS. Her Na went up to 173. Now Na started trending down slowly. Today she is more alert , awake and communicating verbally. Still looks confused.Talked to pt's family at bed side. - Exam Vitals: Temp Pulse Resp BP Pulse Ox 98.8 F 76 16 143/87 92 01/29/18 11:20 01/29/18 11:20 01/29/18 11:20 01/29/18 11:20 01/29/18 11:20 Exam: Gen: A, A, O to self.. Chest: Diminished breath sounds B/L, No wheezing, No crackles, No rales Heart: S1S2+ RRR No murmurs Abd: Soft, NT, BS +, No organomegaly Ext: No edema, pulses are palpable, No calf tenderness Neuro : A, A,confused Skin: No rash. - Assessment and Plan (1) Hypernatremia Current Visit: Yes Status: Acute Assessment and Plan: Severe hypernatremia due to dehydration / hypovolemic Improving this morning Na 154, will switch to 1/2NS Cont checking Na Q6hr Adjust fluids accordingly [place] +, Strict I & O cont close monitoring (2) Metabolic encephalopathy Current Visit: Yes Status: Acute Assessment and Plan: Improving today she is more alert, awake and Oriented will do bed side swallow advance diet as she tolerates (3) Acute kidney injury Current Visit: Yes Status: Acute Assessment and Plan: Due to dehydration Non oliguric improving slowly (4) Hyperglycemia Current Visit: No Status: Acute Assessment and Plan: Improved currently on ISS (5) Dementia Current Visit: No Status: Chronic Assessment and Plan: worsening dementia poor PO intake at [facility] Family would like to consider comfort care Palliative care consulted (6) Polycythemia Current Visit: No Status: Acute Assessment and Plan: stable once patient is able to take by mouth meds will restart hydroxyurea. (7) DVT prophylaxis Current Visit: Yes Status: Acute Assessment and Plan: Heparin 5000 units subcutaneous twice a day - Time Spent with Patient Total time spent is greater than 50% in coordination of care (as documented) at patient's floor/unit and/or counseling patient: Internal Medicine: Result - Labs CBC & Chem 7: 01/29/18 03:19 01/29/18 11:26 Labs: Short CBC 01/29/18 Range/Units 03:19 WBC 9.5 (4.3-11.1) K/mcL Hgb 11.5 (11.5-15.4) g/dL Hct 37.8 (35.3-44.9) % Plt Count 191 (140-400) K/mcL Neutrophils # 7.6 (1.6-8.9) K/mcL BMP 01/28/18 01/28/18 01/28/18 12:40 16:27 22:38 Sodium 158 H D 162 H* 169 H* Potassium 3.4 L Chloride 131 H Carbon Dioxide 31 H BUN 37 H Creatinine 1.11 Glucose 182 H Calcium 8.3 L 01/29/18 01/29/18 01/29/18 03:19 07:40 11:26 Sodium 167 H* 155 H D 134 L D Potassium 3.8 Chloride 129 H Carbon Dioxide 30 H BUN 35 H Creatinine 1.07 Glucose 274 H Calcium 8.3 L Urine 01/28/18 Range/Units 16:00 Urine Color Yellow (Yellow) Urine Clarity Cloudy A (Clear) Urine pH 5.5 (5.0-8.0) pH Units Ur Specific [place] 1.010 (1.010-1.025) Urine Protein 30 H (Neg-Trace) mg/dL Urine Glucose (UA) Normal (Normal) mg/dL Consult Discharge Plan - Plan Referrals: Burt Bolanos MD [Primary Care Provider] - (5) Dementia Qualifiers: Dementia type: Alzheimer's disease Alzheimer's disease onset: unspecified onset Dementia behavioral disturbance: without behavioral disturbance Qualified Code(s): G30.9 - Alzheimer's disease, unspecified; F02.80 - Dementia in other diseases classified elsewhere without behavioral disturbance
[2018-01-29] MEDS ORDERED: 0.9 % Sodium Chloride 1,000 ML IVC SCH (13:30)
[2018-01-29] MEDS ORDERED: D5% in 0.2% NACL w KCl 1,000 ML IVC SCH (17:45)
--- NOTE | 2018-01-29 17:47 | Event Note ---
Date of Encounter: 01/29/18 Time of Encounter: 17:45 This after her Na level came down to 134, so d/c her D5 Water and switched to NS. However 4 hrs later her repeat Na came back as 160. So it looks like afternoon Na 134 was a lab error. Changed the IVF to D5 0.2 NS @ 75 cc/hr .. Cont Q4hr Na.. Talked to pt's family and explained to them about current care.
[2018-01-29] MEDS: ALPRAZolam 0.5 MG TABLET PO SCH (21:02)
[2018-01-30] MEDS: Insulin LISPRO 300 UNITS/3 ML VIAL SQ SCH ×5 (00:10→23:29)
[2018-01-30 00:38] LABS: Basophils % 0.2 %; Eosinophils # 0.1 K/mcL (0.0-0.6); Eosinophils % 0.9 %; Hematocrit 36.6 % (35.3-44.9); Hemoglobin 11.4 g/dL (11.5-15.4); Immature Granulocytes % 0.2 % (0-4); Lymphocytes # 1.2 K/mcL (0.6-4.6); Lymphocytes % 13.5 %; Mean Corpuscular HGB Conc 31.1 g/dL (31.6-35.5); Mean Corpuscular Hemoglobin 34.9 pg (28.0-33.3); Mean Corpuscular Volume 111.9 fL (83.0-100.0); Mean Platelet Volume 11.3 fL (9.4-12.4); Monocytes # 0.4 K/mcL (0.0-1.3); Monocytes % 4.6 %; Neutrophils # 7.3 K/mcL (1.6-8.9); Platelet Count 171 K/mcL (140-400); Red Blood Count 3.27 M/mcL (3.82-4.97); Red Cell Distribution Width 14.1 % (11.5-14.5); Segmented Neutrophils % 80.6 %
[2018-01-30 01:08] LABS: BUN/Creatinine Ratio 26 (6-26); Blood Urea Nitrogen 24 mg/dL (8-23); Calcium 8.3 mg/dL (8.6-10.3); Carbon Dioxide 31 mEq/L (23-29); Chloride 121 mEq/L (98-107); Glucose 229 mg/dL (70-105); Magnesium 1.9 mg/dL (1.6-2.6); Osmolality,Calculated 335 (280-300); Potassium 3.6 mEq/L (3.5-5.1); Sodium 157 mEq/L (136-145); eGFR For Non-African Americans 56 (> 60)
[2018-01-30 01:45] LABS: Large Platelets Present (Not Present); Macrocytosis Present (Not Present); Platelet Estimate Normal (Normal); Stomatocytes 1+ (Not Present)
[2018-01-30] MEDS: *HR* Heparin 5,000 UNIT/ML VIAL SQ SCH ×2 (04:33→20:51)
[2018-01-30] MEDS: ALPRAZolam 0.5 MG TABLET PO SCH ×2 (08:56→20:52)
[2018-01-30] MEDS: D5% in 0.2% NACL w KCl 1,000 ML IVC SCH (09:00)
--- NOTE | 2018-01-30 15:59 | Internal Med Progress Note ---
Hospitalist Progress Note - Encounter Date of Encounter: 01/30/18 Time of Encounter: 09:00 - Subjective Interval History: Ms. Hua is a 87 year old female with history of severe dementia, polycythemia vera and dementia who is chronic [facility] was brought into the ER complaining patient has been having decreased responsiveness , lethargic and abnormal labs with severely elevated sodium. Patient had her sodium checked on came back 158 and y/d it was 168. Pt was admitted into the step down unit and started her on aggressive IV hydration with 1/2NS. Her Na went up to 173. Now Na started trending down slowly. Today she is more alert , awake and communicating verbally. Still looks confused.Talked to pt's family at bed side. No events over night - Exam Vitals: Temp Pulse Resp BP Pulse Ox 97.8 F 79 18 139/85 98 01/30/18 11:13 01/30/18 11:13 01/30/18 11:13 01/30/18 11:13 01/30/18 11:13 Exam: Gen: A, A, O to self.. Chest: Diminished breath sounds B/L, No wheezing, No crackles, No rales Heart: S1S2+ RRR No murmurs Abd: Soft, NT, BS +, No organomegaly Ext: No edema, pulses are palpable, No calf tenderness Neuro : A, A,confused Skin: No rash. - Assessment and Plan (1) Hypernatremia Current Visit: Yes Status: Acute Assessment and Plan: Severe hypernatremia due to dehydration / hypovolemic Improving this morning Na 153 Cont IVF D5 0.2 NS @ 50 cc/hr Cont checking Na Q6hr Adjust fluids accordingly [place] +, Strict I & O cont close monitoring (2) Metabolic encephalopathy Current Visit: Yes Status: Acute Assessment and Plan: Improving today she is more alert, awake and Oriented passed bed side swallow advance diet as she tolerates (3) Acute kidney injury Current Visit: Yes Status: Acute Assessment and Plan: Due to dehydration Non oliguric improving slowly (4) Hyperglycemia Current Visit: No Status: Acute Assessment and Plan: Improved currently on ISS (5) Dementia Current Visit: No Status: Chronic Assessment and Plan: worsening dementia poor PO intake at ECF Family would like to consider comfort care Palliative care consulted (6) Polycythemia Current Visit: No Status: Acute Assessment and Plan: stable once patient is able to take by mouth meds will restart hydroxyurea. (7) DVT prophylaxis Current Visit: Yes Status: Acute Assessment and Plan: Heparin 5000 units subcutaneous twice a day - Time Spent with Patient Total time spent is greater than 50% in coordination of care (as documented) at patient's floor/unit and/or counseling patient: Internal Medicine: Result - Labs CBC & Chem 7: 01/30/18 00:28 01/30/18 12:48 Labs: Short CBC 01/30/18 Range/Units 00:28 WBC 9.1 (4.3-11.1) K/mcL Hgb 11.4 L (11.5-15.4) g/dL Hct 36.6 (35.3-44.9) % Plt Count 171 (140-400) K/mcL Neutrophils # 7.3 (1.6-8.9) K/mcL BMP 01/29/18 01/29/18 01/30/18 16:49 21:24 00:28 Sodium 160 H* D 158 H 157 H Potassium 3.6 Chloride 121 H Carbon Dioxide 31 H BUN 24 H Creatinine 0.94 Glucose 229 H Calcium 8.3 L 01/30/18 01/30/18 01/30/18 00:28 04:58 09:25 Sodium 156 H 153 H 152 H Potassium Chloride Carbon Dioxide BUN Creatinine Glucose Calcium 01/30/18 12:48 Sodium 150 H Potassium Chloride Carbon Dioxide BUN Creatinine Glucose Calcium Consult Discharge Plan - Plan Referrals: Burt Bolanos MD [Primary Care Provider] - (5) Dementia Qualifiers: Dementia type: Alzheimer's disease Alzheimer's disease onset: unspecified onset Dementia behavioral disturbance: without behavioral disturbance Qualified Code(s): G30.9 - Alzheimer's disease, unspecified; F02.80 - Dementia in other diseases classified elsewhere without behavioral disturbance
[2018-01-31] MEDS: Insulin LISPRO 300 UNITS/3 ML VIAL SQ SCH ×3 (05:21→18:14)
[2018-01-31] MEDS: D5% in 0.2% NACL w KCl 1,000 ML IVC SCH (05:22)
[2018-01-31] MEDS: *HR* Heparin 5,000 UNIT/ML VIAL SQ SCH ×2 (05:24→18:14)
[2018-01-31 05:58] LABS: Basophils % 0.2 %; Eosinophils % 0.2 %; Hematocrit 40.1 % (35.3-44.9); Hemoglobin 12.7 g/dL (11.5-15.4); Immature Granulocytes % 0.5 % (0-4); Lymphocytes # 0.8 K/mcL (0.6-4.6); Lymphocytes % 8.7 %; Mean Corpuscular HGB Conc 31.7 g/dL (31.6-35.5); Mean Corpuscular Hemoglobin 34.7 pg (28.0-33.3); Mean Corpuscular Volume 109.6 fL (83.0-100.0); Monocytes # 0.4 K/mcL (0.0-1.3); Monocytes % 4.2 %; Neutrophils # 8.1 K/mcL (1.6-8.9); Platelet Count 167 K/mcL (140-400); Red Blood Count 3.66 M/mcL (3.82-4.97); Red Cell Distribution Width 13.4 % (11.5-14.5); Segmented Neutrophils % 86.2 %
[2018-01-31 07:05] LABS: BUN/Creatinine Ratio 20 (6-26); Blood Urea Nitrogen 18 mg/dL (8-23); Calcium 8.5 mg/dL (8.6-10.3); Carbon Dioxide 29 mEq/L (23-29); Chloride 110 mEq/L (98-107); Glucose 294 mg/dL (70-105); Magnesium 1.8 mg/dL (1.6-2.6); Osmolality,Calculated 315 (280-300); Potassium 3.5 mEq/L (3.5-5.1); Sodium 146 mEq/L (136-145); eGFR For Non-African Americans > 60 (> 60)
[2018-01-31] MEDS: ALPRAZolam 0.5 MG TABLET PO SCH (09:32)
--- NOTE | 2018-01-31 09:42 | Internal Med Progress Note ---
Hospitalist Progress Note - Encounter Date of Encounter: 01/31/18 Time of Encounter: 09:30 - Subjective Interval History: Ms. Hua is a 87 year old female with history of severe dementia, polycythemia vera and dementia who is chronic long-term resident at a local skilled nursing was brought into the ER complaining patient has been having decreased responsiveness , lethargic and abnormal labs with severely elevated sodium. Patient had her sodium checked on came back 158 and y/d it was 168. Pt was admitted into the step down unit and started her on aggressive IV hydration with 1/2NS. Her Na went up to 173. With D5 water and now Na started trending down slowly. Pt is still sleepy and sedative. Still looks confused.Talked to pt's family at bed side. No events over night - Exam Vitals: Temp Pulse Resp BP Pulse Ox 98.0 F 77 18 146/95 95 01/31/18 07:40 01/31/18 07:40 01/31/18 07:40 01/31/18 07:40 01/31/18 07:40 Exam: Gen: A, A, O to self.. Chest: Diminished breath sounds B/L, No wheezing, No crackles, No rales Heart: S1S2+ RRR No murmurs Abd: Soft, NT, BS +, No organomegaly Ext: No edema, pulses are palpable, No calf tenderness Neuro : A, A,confused Skin: No rash. - Assessment and Plan (1) Hypernatremia Current Visit: Yes Status: Acute Assessment and Plan: Severe hypernatremia due to dehydration / hypovolemic Improving this morning Na 146 Cont IVF D5 0.2 NS @ 50 cc/hr will check sodium tonight cont close monitoring Adjust fluids accordingly [place] +, Strict I & O cont close monitoring (2) Metabolic encephalopathy Current Visit: Yes Status: Acute Assessment and Plan: Improving she is responding and communicating verbally however looks sleepy so will d/c all the sedatives for now passed bed side swallow advance diet as she tolerates (3) Acute kidney injury Current Visit: Yes Status: Acute Assessment and Plan: Due to dehydration Non oliguric improving slowly (4) Hyperglycemia Current Visit: No Status: Acute Assessment and Plan: Improved currently on ISS (5) Dementia Current Visit: No Status: Chronic Assessment and Plan: worsening dementia poor PO intake at ECF Family would like to consider comfort care Palliative care consulted (6) Polycythemia Current Visit: No Status: Acute Assessment and Plan: stable once patient is able to take by mouth meds will restart hydroxyurea. (7) DVT prophylaxis Current Visit: Yes Status: Acute Assessment and Plan: Heparin 5000 units subcutaneous twice a day - Time Spent with Patient Total time spent is greater than 50% in coordination of care (as documented) at patient's floor/unit and/or counseling patient: Internal Medicine: Result - Labs CBC & Chem 7: 01/31/18 05:35 01/31/18 05:35 Labs: Short CBC 01/31/18 Range/Units 05:35 WBC 9.4 (4.3-11.1) K/mcL Hgb 12.7 (11.5-15.4) g/dL Hct 40.1 (35.3-44.9) % Plt Count 167 (140-400) K/mcL Neutrophils # 8.1 (1.6-8.9) K/mcL BMP 01/30/18 01/30/18 01/30/18 09:25 12:48 17:40 Sodium 152 H 150 H 149 H Potassium Chloride Carbon Dioxide BUN Creatinine Glucose Calcium 01/30/18 01/31/18 23:49 05:35 Sodium 149 H 146 H Potassium 3.5 Chloride 110 H Carbon Dioxide 29 BUN 18 Creatinine 0.88 Glucose 294 H Calcium 8.5 L Consult Discharge Plan - Plan Referrals: Burt Bolanos MD [Primary Care Provider] - (5) Dementia Qualifiers: Dementia type: Alzheimer's disease Alzheimer's disease onset: unspecified onset Dementia behavioral disturbance: without behavioral disturbance Qualified Code(s): G30.9 - Alzheimer's disease, unspecified; F02.80 - Dementia in other diseases classified elsewhere without behavioral disturbance
[2018-02-01] MEDS: Insulin LISPRO 300 UNITS/3 ML VIAL SQ SCH ×4 (00:06→20:25)
[2018-02-01] MEDS: D5% in 0.2% NACL w KCl 1,000 ML IVC SCH (01:27)
[2018-02-01] MEDS: *HR* Heparin 5,000 UNIT/ML VIAL SQ SCH ×2 (06:32→18:34)
[2018-02-01 07:48] LABS: Basophils % 0.2 %; Eosinophils % 0.1 %; Hematocrit 38.2 % (35.3-44.9); Hemoglobin 12.6 g/dL (11.5-15.4); Immature Granulocytes % 0.8 % (0-4); Lymphocytes # 1.1 K/mcL (0.6-4.6); Lymphocytes % 6.1 %; Mean Corpuscular Hemoglobin 34.8 pg (28.0-33.3); Mean Corpuscular Volume 105.5 fL (83.0-100.0); Mean Platelet Volume 12.4 fL (9.4-12.4); Monocytes # 0.7 K/mcL (0.0-1.3); Monocytes % 3.8 %; Neutrophils # 16.3 K/mcL (1.6-8.9); Platelet Count 219 K/mcL (140-400); Red Blood Count 3.62 M/mcL (3.82-4.97); Red Cell Distribution Width 13.3 % (11.5-14.5)
[2018-02-01 08:15] LABS: BUN/Creatinine Ratio 19 (6-26); Blood Urea Nitrogen 15 mg/dL (8-23); Calcium 8.3 mg/dL (8.6-10.3); Carbon Dioxide 22 mEq/L (23-29); Chloride 105 mEq/L (98-107); Glucose 336 mg/dL (70-105); Magnesium 1.7 mg/dL (1.6-2.6); Osmolality,Calculated 306 (280-300); Potassium 3.2 mEq/L (3.5-5.1); Sodium 141 mEq/L (136-145); eGFR For Non-African Americans > 60 (> 60)
--- NOTE | 2018-02-01 10:50 | Internal Med Progress Note ---
Hospitalist Progress Note - Encounter Date of Encounter: 02/01/18 Time of Encounter: 10:45 - Subjective Interval History: Ms. uHa is a 87 year old female with history of severe dementia, polycythemia vera and dementia who is chronic long-term resident at a local [facility] was brought into the ER complaining patient has been having decreased responsiveness , lethargic and abnormal labs with severely elevated sodium. Patient had her sodium checked on came back 158 and y/d it was 168. Pt was admitted into the step down unit and started her on aggressive IV hydration with 1/2NS. Her Na went up to 173. With D5 water, D5 0.2 NS her Na started trending down slowly. Pt is still sleepy and sedative. Still looks confused.Talked to pt's family at bed side. No events over night - Exam Vitals: Temp Pulse Resp BP Pulse Ox 99.0 F 97 18 144/94 92 02/01/18 07:00 02/01/18 07:00 02/01/18 07:00 02/01/18 07:00 02/01/18 07:00 Exam: Gen: Sleepy, sedative Chest: Diminished breath sounds B/L, No wheezing, No crackles, No rales Heart: S1S2+ RRR No murmurs Abd: Soft, NT, BS +, No organomegaly Ext: No edema, pulses are palpable, No calf tenderness Neuro : A, A,confused Skin: No rash. - Assessment and Plan (1) Hypernatremia Current Visit: Yes Status: Acute Assessment and Plan: Severe hypernatremia due to dehydration / hypovolemic Improving this morning Na 141 Switched IVF to D5 1/2NS @ 100 cc/hr with K+ cont close monitoring [place] +, Strict I & O cont close monitoring (2) Metabolic encephalopathy Current Visit: Yes Status: Acute Assessment and Plan: still sleepy and sedative she is responding and communicating verbally however looks sleepy and confused d/c all the sedatives for now high risk for aspiration strict NPO for now Overall very poor prognosis Will have a family meeting tomorrow to discuss about home hospice care (3) Leukocytosis Current Visit: Yes Status: Acute Assessment and Plan: Concerning for aspiration PNA check UA, CXR started on broad spec abx Zosyn (4) Acute kidney injury Current Visit: Yes Status: Acute Assessment and Plan: Due to dehydration Non oliguric improving slowly (5) Hyperglycemia Current Visit: No Status: Acute Assessment and Plan: Improved currently on ISS (6) Dementia Current Visit: No Status: Chronic Assessment and Plan: worsening dementia poor PO intake at F Family would like to consider comfort care Palliative care consulted (7) Polycythemia Current Visit: No Status: Acute Assessment and Plan: stable once patient is able to take by mouth meds will restart hydroxyurea. (8) DVT prophylaxis Current Visit: Yes Status: Acute Assessment and Plan: Heparin 5000 units subcutaneous twice a day - Time Spent with Patient Total time spent is greater than 50% in coordination of care (as documented) at patient's floor/unit and/or counseling patient: Internal Medicine: Result - Labs CBC & Chem 7: 02/01/18 07:13 02/01/18 07:13 Labs: Short CBC 02/01/18 Range/Units 07:13 WBC 18.3 H D (4.3-11.1) K/mcL Hgb 12.6 (11.5-15.4) g/dL Hct 38.2 (35.3-44.9) % Plt Count 219 (140-400) K/mcL Neutrophils # 16.3 H (1.6-8.9) K/mcL BMP 02/01/18 07:13 Sodium 141 Potassium 3.2 L Chloride 105 Carbon Dioxide 22 L BUN 15 Creatinine 0.78 Glucose 336 H Calcium 8.3 L Consult Discharge Plan - Plan Referrals: Burt Bolanos MD [Primary Care Provider] - (6) Dementia Qualifiers: Dementia type: Alzheimer's disease Alzheimer's disease onset: unspecified onset Dementia behavioral disturbance: without behavioral disturbance Qualified Code(s): G30.9 - Alzheimer's disease, unspecified; F02.80 - Dementia in other diseases classified elsewhere without behavioral disturbance
[2018-02-01] MEDS: Piperacillin/Tazobactam 3.375 GM in 0.9 % Sodium Chloride Mini Bag 100 ML IVPB SCH ×2 (14:51→18:32)
[2018-02-01] MEDS: D5% in 0.45% NACL w KCl 20 MEQ/1,000 ML MLS IVC SCH (14:52)
[2018-02-01 18:52] LABS: Bilirubin,Urine Negative (Negative); Blood,Urine Trace (Negative); Clarity,Urine Cloudy (Clear); Color,Urine Yellow (Yellow); Glucose,Urine (UA) >=1000 mg/dL (Normal); Ketones,Urine 15 mg/dL (Negative); Leukocyte Esterase,Urine Negative (Negative); Nitrite,Urine Negative (Negative); Protein,Urine 30 mg/dL (Neg-Trace); Specific Gravity,Urine > 1.030 (1.010-1.025); Urobilinogen,Urine Normal (Normal)
[2018-02-01 18:55] LABS: Bacteria,Urine Many per hpf (None-Few); Hyaline Casts,Urine None Seen per lpf (None-Few); RBC,Urine 0-3 per hpf (0-3)
[2018-02-01 19:05] LABS: Squamous Epithelial Cell,Urine Few per lpf (None-Few)
[2018-02-01] MEDS ORDERED: *HR* OxyCODONE Immed Rel 5 MG TABLET PO PRN (22:45)
[2018-02-02] MEDS ORDERED: OXYCODONE Oral CONC 10 MG/0.5 ML ORAL.SYG SL PRN (00:26)
[2018-02-02] MEDS: Piperacillin/Tazobactam 3.375 GM in 0.9 % Sodium Chloride Mini Bag 100 ML IVPB SCH ×4 (00:56→23:56)
[2018-02-02] MEDS: Insulin LISPRO 300 UNITS/3 ML VIAL SQ SCH ×5 (01:03→16:30)
[2018-02-02] MEDS: D5% in 0.45% NACL w KCl 20 MEQ/1,000 ML MLS IVC SCH ×3 (02:44→16:37)
[2018-02-02 05:35] LABS: Basophils % 0.2 %; Eosinophils % 0.1 %; Hematocrit 34.8 % (35.3-44.9); Immature Granulocytes % 0.8 % (0-4); Lymphocytes # 1.3 K/mcL (0.6-4.6); Lymphocytes % 7.5 %; Mean Corpuscular HGB Conc 31.6 g/dL (31.6-35.5); Mean Corpuscular Hemoglobin 34.2 pg (28.0-33.3); Mean Corpuscular Volume 108.1 fL (83.0-100.0); Mean Platelet Volume 12.4 fL (9.4-12.4); Monocytes # 0.9 K/mcL (0.0-1.3); Monocytes % 5.2 %; Neutrophils # 14.5 K/mcL (1.6-8.9); Platelet Count 211 K/mcL (140-400); Red Blood Count 3.22 M/mcL (3.82-4.97); Red Cell Distribution Width 13.5 % (11.5-14.5); Segmented Neutrophils % 86.2 %
[2018-02-02 05:54] LABS: BUN/Creatinine Ratio 21 (6-26); Blood Urea Nitrogen 16 mg/dL (8-23); Calcium 7.8 mg/dL (8.6-10.3); Carbon Dioxide 26 mEq/L (23-29); Chloride 109 mEq/L (98-107); Glucose 312 mg/dL (70-105); Magnesium 1.7 mg/dL (1.6-2.6); Osmolality,Calculated 305 (280-300); Potassium 3.5 mEq/L (3.5-5.1); Sodium 141 mEq/L (136-145); eGFR For Non-African Americans > 60 (> 60)
[2018-02-02] MEDS: *HR* Heparin 5,000 UNIT/ML VIAL SQ SCH ×2 (06:38→16:33)
--- NOTE | 2018-02-02 15:15 | Palliative Progress Note ---
Date of Encounter: 02/02/18 Time of Encounter: 12:00 - Assessment and plan (1) Goals of care, counseling/discussion Current Visit: Yes Status: Acute Assessment and plan: Met with pt's POA Charleen Vega. Updated her on pt's current medical condition. Patient has metabolic encephalopathy that did not improve significantly as her electrolytes improved. Pt now incontinent of urine and stool, and with minimal PO intake. Charleen made aware that pt is now a hospice candidate, with a prognosis of weeks. She states that pt is a very independent person, and would not like to use any life prolonging measures of she was bed bound and unable to participate in her own care. Charleen, after conferring with her sisters, decided for deescalation of care with focus on comfort care. Patient to return to retirement with hospice. [facility] contracts with [facility] hospice, family agreeable. (2) Metabolic encephalopathy Current Visit: Yes Status: Acute Assessment and plan: Patient electrolytes have improved, but mental status did not return to baseline. Pt is somnolent, hypoarousable, eating minimal amounts, incontinent of stool and urine. CT head performed today was negative for acute injury or bleed. (3) Dementia Current Visit: No Status: Chronic Qualifiers: Dementia type: Alzheimer's disease Alzheimer's disease onset: unspecified onset Dementia behavioral disturbance: without behavioral disturbance Qualified Code(s): G30.9 - Alzheimer's disease, unspecified; F02.80 - Dementia in other diseases classified elsewhere without behavioral disturbance (4) Hypernatremia Current Visit: Yes Status: Acute Assessment and plan: Sodium WNL ongoing hydration (5) Acute kidney injury Current Visit: Yes Status: Acute Assessment and plan: improving with hydration - Time Spent With Patient Total time spent is greater than 50% face to face with pt and family, in coordination of care (as documented) at patient's floor/unit and/or counseling patient: Greater than 35 minutes - Subjective Interval history: Patient was awake, but confused. She denies pain, and complains of feeling cold. Denies any complains. Pt was admitted with metabolic encephalopathy due to dehydration and electrolyte imbalances. Electrolytes are corrected, but pt continues to be mostly drowsy and lethargic, off sedatives. - Constitutional Vitals: Abnormal lab results WBC 16.8 K/mcL (4.3-11.1) H 02/02/18 05:06 RBC 3.22 M/mcL (3.82-4.97) L 02/02/18 05:06 Hgb 11.0 g/dL (11.5-15.4) L D 02/02/18 05:06 Hct 34.8 % (35.3-44.9) L 02/02/18 05:06 MCV 108.1 fL (83.0-100.0) H 02/02/18 05:06 MCH 34.2 pg (28.0-33.3) H 02/02/18 05:06 Neutrophils # 14.5 K/mcL (1.6-8.9) H 02/02/18 05:06 Large Platelets Present (Not Present) A 01/30/18 00:28 Macrocytosis Present (Not Present) A 01/30/18 00:28 Stomatocytes 1+ (Not Present) A 01/30/18 00:28 Chloride 109 mEq/L (98-107) H 02/02/18 05:06 Glucose 312 mg/dL (70-105) H 02/02/18 05:06 POC Glucose 291 mg/dL (70-99) H 02/02/18 05:53 Hemoglobin A1c 9.4 % (-5.6) H 01/28/18 02:58 Calculated Osmolality 305 (280-300) H 02/02/18 05:06 Calcium 7.8 mg/dL (8.6-10.3) L 02/02/18 05:06 Prealbumin 11.5 mg/dL (17.0-34.0) L 02/02/18 05:06 Urine Clarity Cloudy (Clear) A 02/01/18 18:43 Ur Specific [place] > 1.030 (1.010-1.025) H 02/01/18 18:43 Urine Protein 30 mg/dL (Neg-Trace) H 02/01/18 18:43 Urine Glucose (UA) >=1000 mg/dL (Normal) H 02/01/18 18:43 Urine Ketones 15 mg/dL (Negative) H 02/01/18 18:43 Urine Blood Trace (Negative) H 02/01/18 18:43 Urine Microscopic WBC 5-15 per hpf (0-3) H 02/01/18 18:43 Urine Bacteria Many per hpf (None-Few) H 02/01/18 18:43 Exam: General appearance: Present: no acute distress - Head Head Exam: Present: atraumatic - Eye Eye exam: Present: normal appearance - Expanded ENT Exam Mouth Exam: Present: moist mucosa - Neck Neck exam: Present: full ROM - Respiratory Respiratory exam: Present: CTAB. Absent: rales, rhonchi, wheezes - Cardiovascular Cardiovascular exam: Present: RRR - GI/Abdominal Exam GI/Abdominal exam: Present: normal bowel sounds, soft. Absent: tenderness - Extremities Exam Extremities exam: Present: full ROM. Absent: pedal edema, tenderness - Neurological Exam Neurological exam: alert, confused but verbal. No focal neurologic deficits. Palliative Quality Palliative Quality: Screen for Code Status: Yes, Screen for Goals of Care: Yes, Screen for Pain: Yes, If Pain Regimen Started, Initiate Bowel Regimen: NA, Screen for Nausea/Vomitting: NA Code Status: 01/27/18 23:06 CODE [Resuscitation Status: Active] [RES] Routine Comment: Resuscitation Status: Full Code 01/28/18 09:00 CODE [Resuscitation Status: Active] [RES] Routine Comment: Resuscitation Status: DNR-Comfort Care 01/30/18 13:37 Resuscitation Status: Active [RES] Routine Comment: Resuscitation Status: [id number] - Labs CBC & Chem 7: 02/02/18 05:06 02/02/18 05:06 Labs: Laboratory Results - last 24 hr 02/01/18 02/01/18 02/01/18 00:04 12:38 18:43 WBC RBC Hgb Hct MCV MCH MCHC RDW Plt Count MPV Immature Gran % Seg Neutrophils % Lymphocytes % Monocytes % Eosinophils % Basophils % Neutrophils # Lymphocytes # Monocytes # Eosinophils # Basophils # Sodium Potassium Chloride Carbon Dioxide BUN Creatinine Est GFR ( Amer) Est GFR (Non-Af Amer) BUN/Creatinine Ratio Glucose POC Glucose 295 H 296 H Calculated Osmolality Calcium Magnesium Prealbumin Urine Color Yellow Urine Clarity Cloudy A Urine pH 6.0 Ur Specific [place] > 1.030 H Urine Protein 30 H Urine Glucose (UA) >=1000 H Urine Ketones 15 H Urine Blood Trace H Urine Nitrite Negative Urine Bilirubin Negative Urine Urobilinogen Normal Ur Leukocyte Esterase Negative Urine Microscopic RBC 0-3 Urine Microscopic WBC 5-15 H Ur Squamous Epith Cells Few Urine Bacteria Many H Hyaline Casts None Seen Urine Yeast Test Not Performed Ur Culture Indicated? NO 02/01/18 02/02/18 02/02/18 20:18 00:30 05:06 WBC 16.8 H RBC 3.22 L Hgb 11.0 L D Hct 34.8 L MCV 108.1 H MCH 34.2 H MCHC 31.6 RDW 13.5 Plt Count 211 MPV 12.4 Immature Gran % 0.8 Seg Neutrophils % 86.2 Lymphocytes % 7.5 Monocytes % 5.2 Eosinophils % 0.1 Basophils % 0.2 Neutrophils # 14.5 H Lymphocytes # 1.3 Monocytes # 0.9 Eosinophils # 0.0 Basophils # 0.0 Sodium Potassium Chloride Carbon Dioxide BUN Creatinine Est GFR ( Amer) Est GFR (Non-Af Amer) BUN/Creatinine Ratio Glucose POC Glucose 312 H 298 H Calculated Osmolality Calcium Magnesium Prealbumin Urine Color Urine Clarity Urine pH Ur Specific [place] Urine Protein Urine Glucose (UA) Urine Ketones Urine Blood Urine Nitrite Urine Bilirubin Urine Urobilinogen Ur Leukocyte Esterase Urine Microscopic RBC Urine Microscopic WBC Ur Squamous Epith Cells Urine Bacteria Hyaline Casts Urine Yeast Ur Culture Indicated? 02/02/18 02/02/18 02/02/18 05:06 05:06 05:53 WBC RBC Hgb Hct MCV MCH MCHC RDW Plt Count MPV Immature Gran % Seg Neutrophils % Lymphocytes % Monocytes % Eosinophils % Basophils % Neutrophils # Lymphocytes # Monocytes # Eosinophils # Basophils # Sodium 141 Potassium 3.5 Chloride 109 H Carbon Dioxide 26 BUN 16 Creatinine 0.76 Est GFR ( Amer) > 60 Est GFR (Non-Af Amer) > 60 BUN/Creatinine Ratio 21 Glucose 312 H POC Glucose 291 H Calculated Osmolality 305 H Calcium 7.8 L Magnesium 1.7 Prealbumin 11.5 L Urine Color Urine Clarity Urine pH Ur Specific [place] Urine Protein Urine Glucose (UA) Urine Ketones Urine Blood Urine Nitrite Urine Bilirubin Urine Urobilinogen Ur Leukocyte Esterase Urine Microscopic RBC Urine Microscopic WBC Ur Squamous Epith Cells Urine Bacteria Hyaline Casts Urine Yeast Ur Culture Indicated? - Impressions Impressions Chest X-Ray 02/01/18 10:44 IMPRESSION: No acute cardiopulmonary disease. D/ / 02/01/2018 15:20:06 Venkatesh Capone MD / rachel Interpreting Provider: Venkatesh Capone MD Head CT 02/02/18 09:04 IMPRESSION: 1. No acute intracranial abnormality. 2. Diffuse cerebral atrophy with chronic small vessel ischemic disease. D/ / Kiran Agosto MD / Kiran Agosto MD Interpreting Provider: Kiran Agosto MD Consult Discharge Plan - Plan Referrals: Burt Bolanos MD [Primary Care Provider] -
--- NOTE | 2018-02-02 17:27 | Internal Med Progress Note ---
Hospitalist Progress Note - Encounter Date of Encounter: 02/02/18 Time of Encounter: 09:00 - Subjective Interval History: Ms. Hua is a 87 year old female with history of severe dementia, polycythemia vera and dementia who is chronic long-term resident at a local retirement was brought into the ER complaining patient has been having decreased responsiveness , lethargic and abnormal labs with severely elevated sodium. Patient had her sodium checked on came back 158 and y/d it was 168. Pt was admitted into the step down unit and started her on aggressive IV hydration with 1/2NS. Her Na went up to 173. With D5 water, D5 0.2 NS her Na started trending down slowly. Pt is still sleepy and sedative. Still looks confused.Talked to pt's family at bed side. No events over night. - Exam Vitals: Temp Pulse Resp BP Pulse Ox 98.1 F 75 16 131/81 99 02/02/18 15:59 02/02/18 15:59 02/02/18 15:59 02/02/18 15:59 02/02/18 15:59 Exam: Gen: Sleepy, sedative Chest: Diminished breath sounds B/L, No wheezing, No crackles, No rales Heart: S1S2+ RRR No murmurs Abd: Soft, NT, BS +, No organomegaly Ext: No edema, pulses are palpable, No calf tenderness Neuro : A, A,confused Skin: No rash. - Assessment and Plan (1) Hypernatremia Current Visit: Yes Status: Acute Assessment and Plan: Severe hypernatremia due to dehydration / hypovolemic Improving this morning Na 141 Cont IVF D5 1/2NS @ 100 cc/hr with K+ cont close monitoring [place] +, Strict I & O cont close monitoring (2) Metabolic encephalopathy Current Visit: Yes Status: Acute Assessment and Plan: still sleepy and sedative she is responding and communicating verbally however looks sleepy and confused d/c all the sedatives for now high risk for aspiration strict NPO for now Overall very poor prognosis Repeat CT of head showed no acute changes talked to pt's family who would like to take her back to same ECF under hospice care SW / Palliative care team working on it (3) Leukocytosis Current Visit: Yes Status: Acute Assessment and Plan: Concerning for aspiration PNA UA, CXR are unremarkable Cont broad spec abx Zosyn # 2 (4) Acute kidney injury Current Visit: Yes Status: Acute Assessment and Plan: Due to dehydration Non oliguric improving slowly (5) Hyperglycemia Current Visit: No Status: Acute Assessment and Plan: Improved currently on ISS (6) Dementia Current Visit: No Status: Chronic Assessment and Plan: worsening dementia poor PO intake at ECF Family would like to consider comfort care Palliative care consulted (7) Polycythemia Current Visit: No Status: Acute Assessment and Plan: stable once patient is able to take by mouth meds will restart hydroxyurea. (8) DVT prophylaxis Current Visit: Yes Status: Acute Assessment and Plan: Heparin 5000 units subcutaneous twice a day - Time Spent with Patient Total time spent is greater than 50% in coordination of care (as documented) at patient's floor/unit and/or counseling patient: Internal Medicine: Result - Labs CBC & Chem 7: 02/02/18 05:06 02/02/18 05:06 Labs: Short CBC 02/02/18 Range/Units 05:06 WBC 16.8 H (4.3-11.1) K/mcL Hgb 11.0 L D (11.5-15.4) g/dL Hct 34.8 L (35.3-44.9) % Plt Count 211 (140-400) K/mcL Neutrophils # 14.5 H (1.6-8.9) K/mcL BMP 02/02/18 05:06 Sodium 141 Potassium 3.5 Chloride 109 H Carbon Dioxide 26 BUN 16 Creatinine 0.76 Glucose 312 H Calcium 7.8 L Urine 02/01/18 Range/Units 18:43 Urine Color Yellow (Yellow) Urine Clarity Cloudy A (Clear) Urine pH 6.0 (5.0-8.0) pH Units Ur Specific [place] > 1.030 H (1.010-1.025) Urine Protein 30 H (Neg-Trace) mg/dL Urine Glucose (UA) >=1000 H (Normal) mg/dL - Impressions Impressions Head CT 02/02/18 09:04 IMPRESSION: 1. No acute intracranial abnormality. 2. Diffuse cerebral atrophy with chronic small vessel ischemic disease. D/ / Kiran Agosto MD / Kiran Agosto MD Interpreting Provider: Kiran Agosto MD Consult Discharge Plan - Plan Referrals: Burt Bolanos MD [Primary Care Provider] - (6) Dementia Qualifiers: Dementia type: Alzheimer's disease Alzheimer's disease onset: unspecified onset Dementia behavioral disturbance: without behavioral disturbance Qualified Code(s): G30.9 - Alzheimer's disease, unspecified; F02.80 - Dementia in other diseases classified elsewhere without behavioral disturbance
[2018-02-02] MEDS ORDERED: Insulin LISPRO 300 UNITS/3 ML VIAL SQ SCH (21:00)
[2018-02-03] MEDS: D5% in 0.45% NACL w KCl 20 MEQ/1,000 ML MLS IVC SCH
[2018-02-03] MEDS: *HR* Heparin 5,000 UNIT/ML VIAL SQ SCH (05:27)
[2018-02-03 07:34] VITALS: BP 138/83
[2018-02-03] MEDS: Piperacillin/Tazobactam 3.375 GM in 0.9 % Sodium Chloride Mini Bag 100 ML IVPB SCH (08:03)
[2018-02-03] MEDS: Insulin LISPRO 300 UNITS/3 ML VIAL SQ SCH (08:03)
--- NOTE | 2018-02-03 08:13 | Physician Discharge Referral ---
- Diagnosis (1) Metabolic encephalopathy Status: Acute (2) Hypernatremia Status: Acute Prognosis: Fair - Transfer Medications Home Medications: ALPRAZolam [Xanax 0.5 MG Tablet] 0.5 mg PO BID 01/28/18 [History] Aspirin [Lo-Dose Aspirin EC] 81 mg PO DAILY 01/28/18 [History] Azithromycin [Azithromycin 6-Tab Pack] 250 mg PO PER PKG DI 01/28/18 [History] Cyanocobalamin (Vitamin B-12) [Vitamin B-12] 1,000 mcg PO DAILY 01/28/18 [ History] Donepezil HCl [Aricept] 10 mg PO HS 01/28/18 [History] Dorzolamide/Timolol/Pf [Timolol 0.5%-Dorzolamide 2%] 10 ml LEFT EYE TID [History] GuaiFENesin Liq [Robitussin Liq] 200 mg PO Q4H PRN 01/28/18 [History] Guaifenesin [Mucinex] 600 mg PO Q12H 01/28/18 [History] Hydroxyurea [Hydrea] 500 mg PO DAILY 01/28/18 [History] Ibuprofen [Ibu] 600 mg PO Q6H PRN 01/28/18 [History] Lactobacillus Acidophilus [Acidophilus] 1 tab PO BID 01/28/18 [History] Loperamide HCl [Imodium A-D] 2 mg PO Q4H PRN 01/28/18 [History] Loratadine [Allergy Relief] 10 mg PO DAILY 01/28/18 [History] Mag Hydrox/Aluminum Hyd/Simeth [Cvs Antacid Plus Anti-Gas Liq] 15 ml PO Q6H PRN 01/28/18 [History] Ondansetron HCl [Zofran] 4 mg PO Q6H PRN 01/28/18 [History] Pilocarpine HCl [Salagen] 5 mg PO BID 01/28/18 [History] Sertraline [Zoloft] 50 mg PO DAILY 01/28/18 [History] Travoprost [Travatan Z] 1 drop LEFT EYE 1700 01/28/18 [History] Allergies/Adverse Reactions: 3 Allergy/AdvReac Type Severity Reaction Status Date / Time No Known Allergies Allergy Verified 01/10/15 14:32 - Respiratory Orders Smoking Cessation: Smoking cessation has been advised. For more information, call the [place] Tobacco Quit Line at 9-118-OFSA-NOW. - Advance Directives Code Status: DNR-Arrest/Don't Intubate - Mobility Orders Ambulate, Bedrest - Rehabiliation Orders Rehab Potential: Fair CERTIFICATION: I certify that the transfer of the above named patient to an Extended Care Facility is necessary for the continuing treatment of the diagnosis listed. The above information is true and accurate reflection of patient's current condition. Confidential - Redisclosure prohibited without a patient's written consent.
--- NOTE | 2018-02-03 09:46 | Discharge Summary ---
<Aliya Worley - Last Filed: 02/03/18 17:53> Date of Encounter: 02/03/18 - Discharge Diagnosis (1) Hyperglycemia Status: Acute (2) Hypernatremia Status: Acute (3) Acute kidney injury Status: Resolved (4) Metabolic encephalopathy Status: Acute (5) Leukocytosis Status: Acute Hospital course: Ms. Hua is a 87 year old female - Time Spent with Patient Total time spent providing and/or coordinating discharge services: - Discharge Medications Prescriptions: ALPRAZolam [Xanax 0.5 MG Tablet] 0.5 mg PO BID 30 Days #60 tablet Fluconazole [Diflucan] 100 mg PO DAILY 10 Days #10 tablet Nystatin [Nystatin Suspension] 100,000 unit PO DAILY 10 Days #10 oral.susp Home Medications: Aspirin [Lo-Dose Aspirin EC] 81 mg PO DAILY 01/28/18 [History] Azithromycin [Azithromycin 6-Tab Pack] 250 mg PO PER PKG DI 01/28/18 [History] Cyanocobalamin (Vitamin B-12) [Vitamin B-12] 1,000 mcg PO DAILY 01/28/18 [ History] Donepezil HCl [Aricept] 10 mg PO HS 01/28/18 [History] Dorzolamide/Timolol/Pf [Timolol 0.5%-Dorzolamide 2%] 10 ml LEFT EYE TID [History] GuaiFENesin Liq [Robitussin Liq] 200 mg PO Q4H PRN 01/28/18 [History] Guaifenesin [Mucinex] 600 mg PO Q12H 01/28/18 [History] Hydroxyurea [Hydrea] 500 mg PO DAILY 01/28/18 [History] Ibuprofen [Ibu] 600 mg PO Q6H PRN 01/28/18 [History] Lactobacillus Acidophilus [Acidophilus] 1 tab PO BID 01/28/18 [History] Loperamide HCl [Imodium A-D] 2 mg PO Q4H PRN 01/28/18 [History] Loratadine [Allergy Relief] 10 mg PO DAILY 01/28/18 [History] Mag Hydrox/Aluminum Hyd/Simeth [Cvs Antacid Plus Anti-Gas Liq] 15 ml PO Q6H PRN 01/28/18 [History] Ondansetron HCl [Zofran] 4 mg PO Q6H PRN 01/28/18 [History] Pilocarpine HCl [Salagen] 5 mg PO BID 01/28/18 [History] Sertraline [Zoloft] 50 mg PO DAILY 01/28/18 [History] Travoprost [Travatan Z] 1 drop LEFT EYE 1700 01/28/18 [History] ALPRAZolam [Xanax 0.5 MG Tablet] 0.5 mg PO BID 30 Days #60 tablet 02/03/18 [Rx] Fluconazole [Diflucan] 100 mg PO DAILY 10 Days #10 tablet 02/03/18 [Rx] Nystatin [Nystatin Suspension] 100,000 unit PO DAILY 10 Days #10 oral.susp 02/03 [Rx] Allergies/Adverse Reactions: 3 Allergy/AdvReac Type Severity Reaction Status Date / Time No Known Allergies Allergy Verified 01/10/15 14:32 Date of admission: 01/28/18 00:25 Primary care physician: Burt Bolanos MD Consults: 01/28/18 08:59 Consult to Palliative Care [CONS] Routine Comment: Consulting Provider: Palliative Care Keke Reason for Consult: Family requesting for palliative care Time Notified: 09:00 Call Completed: Yes 02/02/18 08:19 Consult to Director Content Marketing [CONS] Routine Reason for SW Consult: rtn bristol - Constitutional Vitals: Temp Pulse Resp BP Pulse Ox 98.7 F 82 18 138/83 95 02/03/18 07:33 02/03/18 07:33 02/03/18 07:33 02/03/18 07:33 02/03/18 07:33 - Patient Status Disposition: Transfer SNF Condition: Fair - Discharge Instructions Follow Up With: Burt Bolanos MD [Primary Care Provider] - (Patient will follow up with PCP at the [facility]) - Attending Attestation Ms. Hua is a 87 year old female with history of severe dementia, polycythemia vera and dementia who is chronic long-term resident at a local senior care was brought into the ER complaining patient has been having decreased responsiveness , lethargic and abnormal labs with severely elevated sodium. Patient had her sodium checked on came back 158 and y/d it was 168. Pt was admitted into the step down unit and started her on aggressive IV hydration with 1/2NS. Her Na went up to 173. With D5 water, D5 0.2 NS her Na started trending down slowly. The hypernatremia was 2/2 dehydration as evidenced by accompanying GINO which has resolved with IV fluids. She developed leukocytosis on 02/01 which is likely due to aspiration PNA. UA and CXR were unremarkable. She was started on Zosyn. <Rakesh Collier - Last Filed: 02/04/18 09:46> - NOTES TO OUTPATIENT PROVIDER Notes to Outpatient Provider: see hospital course Date of Encounter: 02/04/18 Time of Encounter: 09:45 - Discharge Diagnosis (1) Metabolic encephalopathy Priority: Primary Status: Acute Assessment and Plan: Mentation improved during this encounter she is responding and communicating verbally however looks confused high risk for aspiration strict NPO for now Overall very poor prognosis Repeat CT of head showed no acute changes talked to pt's family who would like to take her back to same ECF under hospice care SW / Palliative care team working on it (2) Hypernatremia Priority: Secondary Status: Acute Assessment and Plan: Severe hypernatremia due to dehydration / hypovolemic Stable this morning Na 141 Continue monitoring fluids in ECF Continue Morrison (3) Leukocytosis Priority: Secondary Status: Acute Assessment and Plan: UA, CXR are unremarkable Oral thrush evident on exam Discharge with Fluconazone and Nystatin swish and swallow. Qualifiers: Leukocytosis type: unspecified Qualified Code(s): D72.829 - Elevated white blood cell count, unspecified (4) Hyperglycemia Priority: Secondary Status: Acute Assessment and Plan: Hospice care on discharge Hospital course: Ms. Hua is a 87 year old female with history of severe dementia, polycythemia vera and dementia who is chronic long-term resident at a local senior care was brought into the ER complaining patient has been having decreased responsiveness , lethargic and abnormal labs with severely elevated sodium. Patient had her sodium checked on came back 158 and y/d it was 168. Pt was admitted into the step down unit and started her on aggressive IV hydration with 1/2NS. Her Na went up to 173. With D5 water, D5 0.2 NS her Na started trending down slowly. The hypernatremia was 2/2 dehydration as evidenced by accompanying GINO which has resolved with IV fluids. She developed leukocytosis on 02/01 which is likely due to aspiration PNA. UA and CXR were unremarkable. She was started on Zosyn. Palliative was consulted and after discussion with family, the decision was made to discharge the pt to ECF with comfort care measures. Did find oral thrush on exam and discharged with fluconazole and nystatin swish and swallow Discharge discussed with: patient, family, nurse, social work, case management, seo consultant - Time Spent with Patient Total time spent providing and/or coordinating discharge services: Date of admission: 01/28/18 00:25 Primary care physician: Burt Bolanos MD Consults: 01/28/18 08:59 Consult to Palliative Care [CONS] Routine Comment: Consulting Provider: Palliative Care Keke Reason for Consult: Family requesting for palliative care Time Notified: 09:00 Call Completed: Yes 02/02/18 08:19 Consult to Director Content Marketing [CONS] Routine Reason for SW Consult: rtn bristol Discharging clinician: Rakesh Collier - Constitutional Vitals: Temp Pulse Resp BP Pulse Ox 98.7 F 82 18 138/83 95 02/03/18 07:33 02/03/18 07:33 02/03/18 07:33 02/03/18 07:33 02/03/18 07:33 General appearance: Present: A&O X 0, pleasant, no acute distress. Absent: answers questions appropriately Exam: Constitutional: elderly female. no acute distress. confused Head: normocephalic and atraumatic Eyes: PERRL, EOMI. sclera anicteric Neck: supple, trachea midline, no lymphadenopathy Lungs: CTA bilaterally. non-labored breathing. no wheezes, rales, or rhonchi Heart: RRR +s1 +s2. No murmurs, clicks, or rubs GI: abdomen soft, non-tender, non-distended. normoactive bowel sounds Extremities: radial pulses palpable and symmetrical. no cyanosis or edema. Neuro: alert, confused. moves all 4 extremities spontaneously. No speech difficulty, but speech is mostly nonsensical Skin: warm, dry, intact - Patient Status Functional capacity at discharge: bed bound Overall status at discharge: patient is not back to baseline - Diet and Activity Activity: as per physical therapy Diet: other (honey-thick liquids )
== END 2018-02-03 12:00 | DRG 70 ==
LOC: 2NNU → SUATTDRO 01-28 00:25 → 2ANU 01-31 19:34
PROVIDERS: ADMIT Family Medicine; ATTEND Student in an Organized Health Care Education/Training Program